=== PATIENT | female | born 1970 | race Hispanic/Latino ===

== ENCOUNTER 2023-05-23 09:47 | Emergency (ER) | payer BC ==
[~2023-05-23] VITALS: Ht 165.1 cm; Wt 72.6 kg
[~2023-05-23 09:47] MED LIST: AMOX1TAB63 PO; ESCI10TA93 PO; GLIP10TA13 PO; LOSA100T15 PO; METF100010 PO; NAPR500T8 PO
[2023-05-23 09:55] VITALS: BP 158/86; PULSE 91; RESP 18; TEMP 97.8; O2SAT 97
[2023-05-23 10:19] LABS: BILIRUBIN,URINE NEGATIVE (NEGATIVE); LEUKOCYTE ESTERASE ,URINE 2+ (NEGATIVE); NITRATE,URINE NEGATIVE (NEGATIVE); PH,URINE 5.5 (4.5-8.0); UROBILINOGEN,URINE 0.2 E.U./dL (0.2)
[2023-05-23 10:25] LABS: BASOPHIL # 0.1 10^3/uL (0.0-0.1); BASOPHIL % 1.1 % (0.0-0.2); EOSINOPHIL # 0.2 10^3/uL (0.0-0.2); EOSINOPHIL % 3.2 % (0.0-5.0); HEMATOCRIT(ML) 31.9 % (36.0-46.0); HEMOGLOBIN 9.8 g/dL (12.0-15.0); LYMPHOCYTES # 2.02 10^3/uL1 (1.0-4.8); LYMPHOCYTES % 27.9 % (24.0-44.0); MEAN CORP HGB 22.4 pg (26-34); MEAN CORP HGB CONCENTRATION 30.7 g/dL (33-36.5); MONOCYTES # 0.4 10^3/uL (0.3-0.8); MONOCYTES % 5.1 % (5.0-12.0); NEUTROPHIL # 4.5 10^3/uL (1.8-7.7); NEUTROPHILS % 62.6 % (41.0-85.0); PLATELET COUNT 370 10^3/uL (150-400); RED BLOOD CELL 4.37 10^6/uL (4.00-5.20); RED CELL DISTRIBUTION WIDTH 18.2 % (11.5-14.5); WHITE BLOOD CELL 7.2 10^3/uL (4.5-11.0)
[2023-05-23 10:34] LABS: +ADD MANUAL DIFF(NO CHRG) NO
[2023-05-23 10:35] LABS: APPEARANCE,URINE CLOUDY; UA COLOR YELLOW
[2023-05-23 10:46] LABS: ALBUMIN(ML) 3.6 g/dL (3.4-5.0); ALBUMIN/GLOBULIN RATIO 1.028; ANION GAP 13.3; CALCIUM 8.9 mg/dL (8.4-10.5); CARBON DIOXIDE 23.2 mmol/L (20.0-32); CREATININE SERUM 0.74 mg/dL (0.59-1.40); EST GFR, NON-AA 82.7 (>/=60); POTASSIUM 3.5 mmol/L (3.6-5.2)
== END 2023-05-23 12:38 | disposition home or self-care (01) ==
LOC: ER 09:47
DX: N39.0 Urinary tract infection, site not specified (principal); K52.9 Noninfective gastroenteritis and colitis, unspecified; Z90.49 Acquired absence of other specified parts of digestive tract; Z98.51 Tubal ligation status
CPT/HCPCS: 99284; 74177; 87086; 80053; 85025; 36415; 81001; 84703; Q9965